=== PATIENT | male | born 1935 | race Caucasian/White ===

== ENCOUNTER 2023-10-22 11:30 | Emergency (ER) | payer MEDICARE, OTHER, SELFPAY ==
[2023-10-22 11:32] VITALS: BP 127/74
--- NOTE | 2023-10-22 12:05 | ED.GENMED ---
History of Present Illness
General
Chief Complaint: Dizziness
Source: patient
Exam Limitations: none
Time Seen by Provider: 10/22/23 11:53
Travel History
Have you had any contact with someone who has COVID-19?: No
Do you have any symptoms of coronavirus? Fever > 100 degrees, chills, cough, shortness of breath, sore throat, loss of taste or smell, muscle aches, or headache?: No
History of Present Illness
History of Present Illness:
See MDM
Past History
Past History
ED Past Medical History: HTN and NIDDM
ED Past Surgical History: Cholecystectomy, Orthopedic and Other (Cataract surgery)
Social History
Tobacco: Non-smoker
Personal:
Living: alone
Employment: Retired
Phy Exam
Physical Exam
Physical Exam:
See MDM
Course
Orders/Labs/Results
Orders:
Orders
10/22/23 12:04
Electrocardiogram (*1) Urgent
Reason for Study: Vertigo / Dizzy
EKG- Treatment ONCE
0.9% Sodium Chloride 1000 ml [Nss] 1,000 ml IV BOLUS
Lorazepam [Ativan] 0.25 mg IV NOW STA
10/22/23 12:23
Complete Blood Count/With Diff Urgent
Comprehensive Metabolic Panel Urgent
Abnormal Lab Results
10/22/23
12:23
RBC 4.07 L 10^6/uL
(4.70-6.10)
Hgb 12.1 L g/dL
(13.0-18.0)
Hct 36.4 L %
(39.0-52.0)
Abs Immat Gran (auto) 0.1 H 10^3/uL
(0-0.05)
Absolute Lymphs (auto) 0.6 L 10^3/uL
(1.2-3.4)
Absolute Monos (auto) 0.7 H 10^3/uL
(0.1-0.6)
Immature Gran % 1.6 H %
(0-0.5)
Neutrophils % 76.3 H %
(42.2-75.2)
Lymphocytes % 6.9 L %
(20.5-51.1)
Eosinophils % 6.4 H %
(0-6)
Sodium 132 L mmol/L
(135-145)
BUN 30 H mg/dl
(9-20)
Creatinine 2.0 H mg/dL
(0.7-1.3)
Glucose 251 H mg/dl
(70-99)
10/22/23 12:23
10/22/23 12:23
Vital Signs
Initial and Last Documented VS:
Initial Vital Signs
Temp Pulse Resp BP Pulse Ox
97.4 F 93 18 127/74 95
10/22/23 11:32 10/22/23 11:32 10/22/23 11:32 10/22/23 11:32 10/22/23 11:32
Last Documented Vital Signs
Temp Pulse Resp BP Pulse Ox
97.4 F 93 18 127/74 95
10/22/23 11:32 10/22/23 11:32 10/22/23 11:32 10/22/23 11:32 10/22/23 11:32
MDM/Problems Addressed
Differential Diagnosis Includes:
HPI and MDM Narrative:
88-year-old male presenting for evaluation of generalized weakness and fatigue. He complains of dizziness when he stands up quickly. He is coming from [facility]. Patient has increasing depression. He admits that he is
depressed but denies suicidal thoughts.
Will obtain basic blood work and provide IV fluids.
No cerebellar signs on exam.
Physical exam
General: Well appearing and non-toxic
HEENT: protecting airway. Mildly dry mucous membrane
Neck: appears supple
CV: No evidence of cyanosis. Regular rate and rhythm
Resp: No accessory muscle use
Abd: Non-distended
Extremities: No deformities
Neuro: alert
Psych: Depressed affect
Skin: Intact
Problems Addressed including Acute and Chronic Conditions affecting care:
1. Dizziness
Acuity: acute
Prognosis: stable
Details: It appears orthostatic. Patient acknowledges he is not eating or drinking much. We will provide IV fluids and reassess
2. Depressed
Acuity: Chronic
Prognosis: stable
Details: Will give small dose of Ativan and medically clear him to go back to crisis
3. Hyperglycemia
Acuity: acute
Prognosis: stable
Details: Discussed talk to PCP about better blood sugar control.
Updates
On reevaluation after IV fluids and Ativan, patient feeling much better. His friend is at bedside. They feel comfortable going home and will follow-up with psychiatry as an outpatient. I offered to bring him back to [facility] but they declined
Differential Diagnosis (but not limited to): Depression, dehydration, orthostasis
Testing considered: Troponin but denies exertional symptoms or chest pain
Drug therapy (if applicable): OTC meds, please see d/c instruction regarding Rx drugs
Amount and/or Complexity of Data Reviewed
Clinical info obtained from: Patient
External data reviewed: N/A
Labs I independently reviewed (but not limited to): Hyperglycemia, chronic Cr elevation
Radiology: N/A
Pulse Ox: not hypoxic
EKG independently reviewed: Sinus rhythm, left axis, no STEMI
Drop Wire Operator: N/A
Critical Care: N/A
Risk of Complication:
Social Determinants of health: Good social support
Discussed with other providers: N/A
Escalation of Care includes Admit/Obs: After being observed in the Emergency Department, pt stable for discharge.
Occasional wrong word or 'sound a like' substitutions may have occurred due to the inherent limitations of voice recognition software. Read the chart carefully and recognize, using context, where substitutions have occurred.
*Critical Care Note
Total Time (30-74mins, 75-104mins- exclusive of procedures): Not Applicable
ED Attending Note
-
Portions of this chart may have been created with voice recognition software.� Occasional wrong word or��sound alike� substitutions may have occurred due to the inherent limitations of voice recognition software.
Discharge Plan
Departure
Patient Disposition: Home (Routine Discharge)
Date of Disposition: 10/22/23
Time of Disposition: 13:57
Patient with high blood pressure during this ER visit?: No
Discharge Problem:
Acute dehydration
Instructions: Dehydration, Adult (DC), Depression, Adult (DC)
Prescriptions:
New
lorazepam 0.5 mg tablet
0.25 mg PO BID PRN (Reason: Anxiety) Qty: 10 0RF
Referrals:
Ed Contreras MD [Family Provider] -
Activity Restrictions/Additional Instructions:
Please return for any worsening symptoms.
You may return at any time if you have further concerns.
Please follow up with your doctor at the first available appointment, preferably this week.
Use the prescribed medicine sparingly.
Thank you for choosing [facility].
Interventions
Interventions:
*Risk Screen - Suicide Last Done: 10/22/23 11:34
*General Assessment Last Done: 10/22/23 11:34
*Neglect/Abuse Screening Last Done: 10/22/23 11:34
*ED COVID-19 Vaccine History Last Done: 10/22/23 11:37
[2023-10-22] MEDS: ATIVAN 0.25 MG IV (12:22)
[2023-10-22] MEDS: NSS 1000 IV (12:22)
[2023-10-22 12:35] LABS: % Basophils 0.5 % (0-2); % Eosinophils 6.4 % (0-6); % Immature Granulocytes 1.6 % (0-0.5); % Lymphocytes 6.9 % (20.5-51.1); % Monocytes 8.3 % (1.7-9.3); % Neutrophils 76.3 % (42.2-75.2); Absolute Eosinophils 0.5 10^3/uL (0-0.7); Absolute Immature Granulocytes 0.1 10^3/uL (0-0.05); Absolute Lymphocytes 0.6 10^3/uL (1.2-3.4); Absolute Monocytes 0.7 10^3/uL (0.1-0.6); Absolute Neutrophils 6.2 10^3/uL (1.4-6.5); Hematocrit 36.4 % (39.0-52.0); Hemoglobin 12.1 g/dL (13.0-18.0); Mean Corp Hgb Conc. 33.2 g/dL (33.0-37.0); Mean Corpuscular Hgb 29.7 pg (27.0-31.0); Mean Corpuscular Volume 89.4 fL (80.0-94.0); Mean Platelet Volume 9.8 fL (7.4-10.4); Nucleated Red Blood Cells % 0 % (-); Platelet Count 271 10^3/uL (130-400); Red Blood Cell Count 4.07 10^6/uL (4.70-6.10); Red Cell Dist. Width 12.8 % (11.5-14.5); White Blood Cell Count 8.2 10^3/uL (4.8-10.8)
[2023-10-22 12:48] LABS: ALT (SGPT) 16 U/L (0-50); AST (SGOT) 26 U/L (17-59); Albumin 3.5 g/dl (3.5-5.0); Alkaline Phosphatase 79 U/L (38-126); Blood Urea Nitrogen 30 mg/dl (9-20); Calcium 9.2 mg/dl (8.4-10.2); Carbon Dioxide 23 mmol/L (22-30); Chloride 102 mmol/L (98-107); Glucose 251 mg/dl (70-99); Potassium 4.4 mmol/L (3.5-5.1); Sodium 132 mmol/L (135-145); Total Bilirubin 0.9 mg/dl (0.2-1.3); Total Protein 6.5 g/dl (6.3-8.2); eGFR 31.51
== END 2023-10-22 14:35 | disposition home or self-care (01) ==
LOC: EMR 11:30
PROVIDERS: EMERGENCY PHYSICIAN Student in an Organized Health Care Education/Training Program; FAMILY PHYSICIAN Family Medicine
DX: E86.0 Dehydration (principal)
CPT/HCPCS: 99284; 96374; 96361; 80053; 85025; 93005

== ENCOUNTER 2023-11-02 02:16 | Emergency (ER) | payer MEDICARE, OTHER, SELFPAY ==
[2023-11-02] VITALS (11 sets, daily range): BP systolic 107–153; BP diastolic 58–80; PULSE 91; BMI 23.6
[2023-11-02 02:36] LABS: % Basophils 0.3 % (0-2); % Lymphocytes 12.7 % (20.5-51.1); % Monocytes 10.2 % (1.7-9.3); % Neutrophils 71.8 % (42.2-75.2); Absolute Eosinophils 0.3 10^3/uL (0-0.7); Absolute Immature Granulocytes 0.2 10^3/uL (0-0.05); Absolute Lymphocytes 1.2 10^3/uL (1.2-3.4); Absolute Monocytes 0.9 10^3/uL (0.1-0.6); Absolute Neutrophils 6.6 10^3/uL (1.4-6.5); Hematocrit 33.5 % (39.0-52.0); Hemoglobin 11.8 g/dL (13.0-18.0); Mean Corp Hgb Conc. 35.2 g/dL (33.0-37.0); Mean Corpuscular Hgb 30.3 pg (27.0-31.0); Mean Corpuscular Volume 86.1 fL (80.0-94.0); Mean Platelet Volume 9.6 fL (7.4-10.4); Nucleated Red Blood Cells % 0 % (-); Platelet Count 306 10^3/uL (130-400); Red Blood Cell Count 3.89 10^6/uL (4.70-6.10); Red Cell Dist. Width 12.9 % (11.5-14.5); White Blood Cell Count 9.2 10^3/uL (4.8-10.8)
--- NOTE | 2023-11-02 02:48 | ED.GENMED ---
History of Present Illness
<ISABELLA Reddy - Last Filed: 11/02/23 06:02>
General
Chief Complaint: Fall
Source: patient
Exam Limitations: none
Time Seen by Provider: 11/02/23 02:22
Nursing documentation reviewed up to this point in time: agreed with
Travel History
Have you had any contact with someone who has COVID-19?: No
Do you have any symptoms of coronavirus? Fever > 100 degrees, chills, cough, shortness of breath, sore throat, loss of taste or smell, muscle aches, or headache?: No
History of Present Illness
History of Present Illness:
patient is a 88 y/o male with PMH of HTN presenting after a fall. Patient states the fall occurred at around 1 am. Patient states he woke up to use the restroom when his legs 'gave out.' patient states that he doesnt recall if he hit his head or
LOC. Patient denies GARCIA, SOB, CP, dizziness, neck/hip/back pain, N/V/D/C. Patient states he is not on a blood thinner. Patient denies any tobacco or alcohol in the last 48 hrs. Patent denies any acute pain after the fall.
Past History
<ISABELLA Reddy - Last Filed: 11/02/23 06:02>
Past History
ED Past Medical History: HTN and NIDDM
ED Past Surgical History: Cholecystectomy, Orthopedic and Other (Cataract surgery)
Social History
Tobacco: Non-smoker
Personal:
Living: alone
Employment: Retired
Review of Systems
<ISABELLA Reddy - Last Filed: 11/02/23 06:02>
Review of Systems
All Other Systems: Not applicable
Constitutional: Reports no symptoms
EENT: Reports no symptoms
Respiratory: Reports no symptoms
Cardiac: Reports no symptoms
ABD/GI: Reports no symptoms
: Reports no symptoms
Musculoskeletal: Reports no symptoms
Skin: Reports no symptoms
Neurological: Reports no symptoms
Endocrine: Reports no symptoms
Hematologic/Lymphatic: Reports no symptoms
Psychiatric: Reports no symptoms
Phy Exam
<ISABELLA Reddy - Last Filed: 11/02/23 06:02>
General Physical Exam
General Presentation: well appearing and no apparent distress
General Skin: warm and dry
General Habitus: normal
General Mental: alert
General Hydration: appears well hydrated
ENT Exam
ENT Exam: EOMI, pharynx normal, neck supple and normocephalic
Eye Exam
Eye Exam: PERRL, cornea clear and conjunctiva normal
Cardiovascular Exam
Cardiovascular Exam: regular rate/rhythm, no edema, no murmur and normal peripheral pulses
Pulmonary Exam
Pulmonary Exam: lungs clear, no respiratory distress, no rales, no crackles, no rhonchi, no stridor, no wheezing and no cough
Gastrointestinal Exam
Gastrointestinal Exam: normal bowel sounds, non tender, soft, no organomegaly, no pulsatile mass and non distended
Neurological Exam
Neurological Exam: alert, oriented x3, no motor deficits and speech normal
Musculoskeletal Exam
Musculoskeletal Exam: full ROM and no edema
Skin Exam
Skin Exam: normal color, warm/dry, no rash and no petechia
Psychiatric Exam
Psychiatric Exam: normal mood/affect
Course
<ISABELLA Reddy - Last Filed: 11/02/23 06:02>
Orders/Labs/Results
Orders:
Orders
11/02/23 02:24
Electrocardiogram (*1) Urgent
Reason for Study: Fatigue / Weakness
EKG- Treatment ONCE
11/02/23 02:31
Complete Blood Count/With Diff Urgent
Comprehensive Metabolic Panel Urgent
11/02/23 03:59
CT Head W/o Iv Contrast Urgent
Comment:
Reason For Exam: fall
11/02/23 04:19
CT Cervical Spine W/o Iv Contr Urgent
Comment:
Reason For Exam: fall
11/02/23 04:50
Ambulate Patient-Treatment ONCE
Abnormal Lab Results
11/02/23
02:31
RBC 3.89 L 10^6/uL
(4.70-6.10)
Hgb 11.8 L g/dL
(13.0-18.0)
Hct 33.5 L %
(39.0-52.0)
Abs Immat Gran (auto) 0.2 H 10^3/uL
(0-0.05)
Absolute Neuts (auto) 6.6 H 10^3/uL
(1.4-6.5)
Absolute Monos (auto) 0.9 H 10^3/uL
(0.1-0.6)
Immature Gran % 2.0 H %
(0-0.5)
Lymphocytes % 12.7 L %
(20.5-51.1)
Monocytes % 10.2 H %
(1.7-9.3)
Sodium 134 L mmol/L
(135-145)
Chloride 95 L mmol/L
(98-107)
BUN 50 H mg/dl
(9-20)
Creatinine 2.5 H mg/dL
(0.7-1.3)
Glucose 181 H mg/dl
(70-99)
11/02/23 02:31
11/02/23 02:31
Vital Signs
Initial and Last Documented VS:
Initial Vital Signs
Temp Pulse Resp BP Pulse Ox
97.8 F 71 19 140/80 99
11/02/23 02:21 11/02/23 02:21 11/02/23 02:21 11/02/23 02:21 11/02/23 02:21
Last Documented Vital Signs
Temp Pulse Resp BP Pulse Ox
97.8 F 79 18 127/64 100
11/02/23 02:21 11/02/23 03:45 11/02/23 03:45 11/02/23 03:00 11/02/23 03:45
<Elan Booker, DO - Last Filed: 11/02/23 05:22>
Orders/Labs/Results
Orders:
Orders
11/02/23 02:24
Electrocardiogram (*1) Urgent
Reason for Study: Fatigue / Weakness
EKG- Treatment ONCE
11/02/23 02:31
Complete Blood Count/With Diff Urgent
Comprehensive Metabolic Panel Urgent
11/02/23 03:59
CT Head W/o Iv Contrast Urgent
Comment:
Reason For Exam: fall
11/02/23 04:19
CT Cervical Spine W/o Iv Contr Urgent
Comment:
Reason For Exam: fall
11/02/23 04:50
Ambulate Patient-Treatment ONCE
Abnormal Lab Results
11/02/23
02:31
RBC 3.89 L 10^6/uL
(4.70-6.10)
Hgb 11.8 L g/dL
(13.0-18.0)
Hct 33.5 L %
(39.0-52.0)
Abs Immat Gran (auto) 0.2 H 10^3/uL
(0-0.05)
Absolute Neuts (auto) 6.6 H 10^3/uL
(1.4-6.5)
Absolute Monos (auto) 0.9 H 10^3/uL
(0.1-0.6)
Immature Gran % 2.0 H %
(0-0.5)
Lymphocytes % 12.7 L %
(20.5-51.1)
Monocytes % 10.2 H %
(1.7-9.3)
Sodium 134 L mmol/L
(135-145)
Chloride 95 L mmol/L
(98-107)
BUN 50 H mg/dl
(9-20)
Creatinine 2.5 H mg/dL
(0.7-1.3)
Glucose 181 H mg/dl
(70-99)
11/02/23 02:31
11/02/23 02:31
Vital Signs
Initial and Last Documented VS:
Initial Vital Signs
Temp Pulse Resp BP Pulse Ox
97.8 F 71 19 140/80 99
11/02/23 02:21 11/02/23 02:21 11/02/23 02:21 11/02/23 02:21 11/02/23 02:21
Last Documented Vital Signs
Temp Pulse Resp BP Pulse Ox
97.8 F 79 18 127/64 100
11/02/23 02:21 11/02/23 03:45 11/02/23 03:45 11/02/23 03:00 11/02/23 03:45
<ISABELLA Reddy - Last Filed: 11/02/23 06:02>
MDM/Problems Addressed
Differential Diagnosis Includes:
fall associated injury
MDM/Problems Addressed:
patient admits to a fall.
<ISABELLA Reddy - Last Filed: 11/02/23 06:02>
*Critical Care Note
Total Time (30-74mins, 75-104mins- exclusive of procedures): Not Applicable
<ISABELLA Reddy - Last Filed: 11/02/23 06:02>
Update Note
Update Note:
patient stood up and walked around room with assistance. Patient admitted to dizziness with standing upright from seated position. Patient was mildly unsteady. Patient uses cane to ambulate.
discussed with patient stability on feet; discussed use of walkers vs. canes at home and options to prevent future falls; patient prefers to not use walker due to inefficiency of walking; patient admits to living in independent living and has had
multiple falls in is history. Patient does not have direct contact with immediate assistance if needed at current living situation. Case management consulted due to possibility of unsafe living situation.
CT HEAD
CT C-SPINE
IMPRESSION:
HEAD
No acute intracranial hemorrhage, herniation or hydrocephalus.
C-SPINE
No acute fracture or traumatic malalignment. No prevertebral soft tissue swelling.
Case finalized at 509am ET
<Elan Booker DO - Last Filed: 11/02/23 05:22>
Update Note
Update Note:
patient stood up and walked around room with assistance. Patient admitted to dizziness with standing upright from seated position. Patient was mildly unsteady. Patient uses cane to ambulate.
CT HEAD
CT C-SPINE
IMPRESSION:
HEAD
No acute intracranial hemorrhage, herniation or hydrocephalus.
C-SPINE
No acute fracture or traumatic malalignment. No prevertebral soft tissue swelling.
Case finalized at 509am ET
ED Attending Note
<ISABELLA Reddy - Last Filed: 11/02/23 06:02>
-
Portions of this chart may have been created with voice recognition software.� Occasional wrong word or��sound alike� substitutions may have occurred due to the inherent limitations of voice recognition software.
<Elan Booker DO - Last Filed: 11/02/23 05:22>
ED Attending Note
Patient seen and examined by attending physician: Yes
I performed the substantive portion of visit, reviewed & personally made and approve the management plan that is documented in note by myself or TERRY.: Yes
ED Attending Note:
Pleasant 88-year-old male presents after fall. He states that he was try to get up around 1 AM and walked to the restroom. He states in route his legs gave out and he could not stand up. He is unsure if he hit his head. He is not sure if he lost
consciousness. In the emergency department he complains of weakness with no specific pain. Patient has no complaints other than weakness. Patient was seen in conjunction with the PA student. I have reviewed and agree with the history and
treatment plan presented. On my independent physical exam, patient is awake, alert, and oriented x3, no seemingly no acute distress. Heart is regular rate and rhythm. Lungs are clear to auscultation bilaterally without wheezes rales or rhonchi
present. Abdomen is soft nontender nondistended. Hips are nontender to palpation. Skin is warm and dry.
Plan is CT of the head and ambulate. If patient is unable to ambulate safely. Patient will be admitted for further observation.
Discharge Plan
Departure
Prescriptions:
No Action
lorazepam 0.5 mg tablet
0.25 mg PO BID PRN (Reason: Anxiety) Qty: 10 0RF
Referrals:
Ed Contreras MD [Family Provider] -
Interventions
Interventions:
*Risk Screen - Suicide Last Done: 11/02/23 02:21
*General Assessment Last Done: 11/02/23 02:21
*Neglect/Abuse Screening Last Done: 11/02/23 02:21
*ED COVID-19 Vaccine History Last Done: 11/02/23 02:21
ED-Musculoskeletal Assessment Last Done: 11/02/23 02:47
ED- Neurological Assessment Last Done: 11/02/23 02:47
ED-Skin Assessment Last Done: 11/02/23 02:47
Discharge Date and Time
Print Language: SWEDISH
[2023-11-02 02:55] LABS: ALT (SGPT) 17 U/L (0-50); AST (SGOT) 28 U/L (17-59); Alkaline Phosphatase 112 U/L (38-126); Blood Urea Nitrogen 50 mg/dl (9-20); Carbon Dioxide 23 mmol/L (22-30); Chloride 95 mmol/L (98-107); Estimated Creatinine Clearance 21 ml/min; Glucose 181 mg/dl (70-99); Potassium 4.1 mmol/L (3.5-5.1); Sodium 134 mmol/L (135-145); Total Bilirubin 0.8 mg/dl (0.2-1.3); eGFR 24.11
--- NOTE | 2023-11-02 08:02 | EDRN ---
Addendum entered by Tracy Downs RN 11/02/23 09:34:
Cynthia is not pt's daughter, just POA. Cynthia's mother (not pt's ) available to pick pt up from hospital.
Original Note:
Spoke to patient's daughter and RAMarilou Sarmiento [place] ([phone]). Daughter is concerned over pt's disposition, was told that pt is awaiting CM consult due to pt being unsteady on his feet. Daughter asked for a phone call from CM to discuss.
Daughter is out of state, but pt's other family, including are here and can pick him up if he is to be discharged.
[2023-11-02] MEDS: NSS 500 IV (08:09)
--- NOTE | 2023-11-02 08:56 | CM ---
Addendum entered by Naomy Begum RN 11/02/23 10:19:
GEETHA spoke with crisis to update.
Addendum entered by Naomy Begum RN 11/02/23 10:00:
Cm spoke with patient. Patient is tearful and apologizing several times for feeling 'sick'. Patient stated that he has not felt better since he left [place] in August. He stated that he wants someone to get him a 'shot' and get him 'out of
here'. 'If someone doesnt' do it, I'll do it myself.' Eloise PELLETIER is aware of plan to consult crisis.
CM updated bedside RN and Dr. Aguillon. Plan to consult crisis.
Original Note:
CM was consulted for discharge planning. CM spoke with patient's PRABHU Navas. Patient has been living at [facility]. Patient at times returns to his home in [place]. Eloise stated that she feel patient would benefit from staying at [place]. Patient did have a stay at [facility] due to depression in August 2023. Eloise feels that SNF would cause an increase in patient's depressive symptoms. Patient is followed by a psychiatrist.
CM requested PT consult. CM met with patient in room. Patient is agreeable to plan.
--- NOTE | 2023-11-02 10:03 | EDRN ---
Pt offered food and drink but states he just wants to sleep because he's been up all night and is tired. Pt is intermittently tearful, states he's suffering with depression. Pt questioned if he was actively trying to harm himself, and states 'no, I
just want to get help.' Lights dimmed for pt comfort, to try to promote pt being able to sleep. Pt awaiting crisis consult.
--- NOTE | 2023-11-02 13:44 | EDRN ---
Pt was evaluated by crisis and placed into [facility] with EMS pickup. Pt's POA's mother at bedside at this time. IV discontinued, pt dressed and awaiting transport.
== END 2023-11-02 14:22 ==
LOC: EMR 02:16
PROVIDERS: EMERGENCY PHYSICIAN Student in an Organized Health Care Education/Training Program; FAMILY PHYSICIAN Family Medicine
DX: R53.1 Weakness (principal); R42 Dizziness and giddiness; R07.89 Other chest pain; R53.83 Other fatigue; W19.XXXA Unspecified fall, initial encounter; R27.8 Other lack of coordination; I10 Essential (primary) hypertension; E11.9 Type 2 diabetes mellitus without complications; R29.6 Repeated falls; Z90.49 Acquired absence of other specified parts of digestive tract; Z88.8 Allergy status to other drugs, medicaments and biological substances
CPT/HCPCS: 99285; 96360; 70450; 72125; 80053; 85025; 93005

== ENCOUNTER → 2023-12-06 09:39 | Outpatient (REF) | payer MEDICARE, OTHER, SELFPAY ==
[2023-12-06 11:20] LABS: Urine Albumin Negative (Neg - Trace); Urine Bilirubin Negative (Negative); Urine Character Clear (Clear); Urine Color Yellow; Urine Glucose Negative (Negative); Urine Ketone Negative (Negative); Urine Leukocyte Negative (Negative); Urine Nitrite Negative (Negative); Urine Occult Blood Negative (Negative); Urine Urobilinogen Negative (Neg - 1+)
[2023-12-06 11:28] LABS: % Basophils 0.5 % (0-2); % Immature Granulocytes 1.4 % (0-0.5); % Lymphocytes 16.3 % (20.5-51.1); % Monocytes 7.9 % (1.7-9.3); % Neutrophils 71.9 % (42.2-75.2); Absolute Eosinophils 0.1 10^3/uL (0-0.7); Absolute Immature Granulocytes 0.1 10^3/uL (0-0.05); Absolute Lymphocytes 1.1 10^3/uL (1.2-3.4); Absolute Monocytes 0.5 10^3/uL (0.1-0.6); Absolute Neutrophils 4.7 10^3/uL (1.4-6.5); Hematocrit 35.5 % (39.0-52.0); Hemoglobin 11.7 g/dL (13.0-18.0); Mean Corpuscular Hgb 30.7 pg (27.0-31.0); Mean Corpuscular Volume 93.2 fL (80.0-94.0); Mean Platelet Volume 10.5 fL (7.4-10.4); Nucleated Red Blood Cells % 0 % (-); Platelet Count 206 10^3/uL (130-400); Red Blood Cell Count 3.81 10^6/uL (4.70-6.10); White Blood Cell Count 6.6 10^3/uL (4.8-10.8)
[2023-12-06 11:45] LABS: ALT (SGPT) 13 U/L (0-50); AST (SGOT) 23 U/L (17-59); Albumin 3.8 g/dl (3.5-5.0); Alkaline Phosphatase 77 U/L (38-126); Blood Urea Nitrogen 41 mg/dl (9-20); Calcium 9.2 mg/dl (8.4-10.2); Carbon Dioxide 24 mmol/L (22-30); Chloride 105 mmol/L (98-107); Glucose 134 mg/dl (70-99); Potassium 4.5 mmol/L (3.5-5.1); Sodium 134 mmol/L (135-145); Total Bilirubin 0.5 mg/dl (0.2-1.3); Total Protein 6.4 g/dl (6.3-8.2); eGFR 33.51
[2023-12-06 11:57] LABS: Free T4 1.25 ng/dl (0.78-2.19)
[2023-12-06 12:18] LABS: TSH 1.76 uIU/ml (0.47-4.68)
[2023-12-06 12:29] LABS: Vitamin B12 497 pg/ml (239-931)
[2023-12-06 13:59] LABS: Glycohemoglobin (HgbA1c) 8.3 % (4.0-5.6)
== END ==
LOC: OLABMERCHI 09:39
PROVIDERS: ATTENDING PHYSICIAN Nurse Practitioner Gerontology
DX: E78.5 Hyperlipidemia, unspecified (principal); D64.9 Anemia, unspecified; R94.4 Abnormal results of kidney function studies; E11.9 Type 2 diabetes mellitus without complications; E55.9 Vitamin D deficiency, unspecified; D51.9 Vitamin B12 deficiency anemia, unspecified
CPT/HCPCS: 36415; 80053; 81003; 82306; 82607; 83036; 84439; 84443; 85025

== ENCOUNTER → 2024-08-28 10:48 | Outpatient (REF) | payer MEDICARE, OTHER, SELFPAY | LOC: HWRAD 10:48 | PROVIDERS: ATTENDING PHYSICIAN Family Medicine | DX: M54.50 Low back pain, unspecified (principal); G89.29 Other chronic pain | CPT/HCPCS: 72202 ==